=== PATIENT | female | born 1950 | race Caucasian/White ===

== ENCOUNTER 2021-08-22 11:34 | Outpatient (CLI) | payer MEDICARE, SELFPAY ==
[2021-08-22 15:15] LABS: T4 Total, Thyroxin 10.6 ug/dL (4.8-13.9); Thyroid Stim Hormone (TSH) 2.11 uIU/mL (0.358-3.74)
== END 2021-08-22 23:59 | disposition short-term general hospital (02) ==
LOC: MTLAB 11:41
PROVIDERS: PCP Family Medicine; Referring Provider Family Medicine; Visit Provider Family Medicine
DX: E03.9 Hypothyroidism, unspecified (principal)
CPT/HCPCS: 36415; 84436; 84443

== ENCOUNTER 2021-09-20 07:40 | Outpatient (CLI) | payer MEDICARE, SELFPAY ==
--- NOTE | 2021-09-20 07:45 | BI_ITS ---
MAMMOGRAPHY - BILATERAL SCREENING REASON FOR EXAM: Female, 71 years old. Routine annual screening examination. PERTINENT HISTORY: Non-contributory. TECHNIQUE: Digital bilateral breast tremaine (3D mammographic acquisition) in the CC and MLO projections. 2-D mediolateral oblique (MLO) and craniocaudad (CC) views of both breasts were obtained. CAD: Full Field Digital Mammography with Computer Added Detection was performed. COMPARISON: Comparison is made with prior examination dated 09/05/2020. FINDINGS: Breast Composition: There are scattered areas of fibroglandular density. There are no dominant masses or suspicious calcifications. No other significant abnormalities are identified. There has been no significant change since the prior study. BI/SCRN MAMM (CAD)W/TREMAINE BILAT IMPRESSION: Stable bilateral screening mammogram. Yearly follow-up mammogram recommended. (A) ASSESSMENT CATEGORY: BIRADS Category 1: Negative. A letter regarding these results will be sent to the patient by the facility within 30 days. Approximately 10% of breast cancers are not detected by mammography. A normal mammogram should not delay biopsy of a clinically suspicious abnormality. [id number] Electronically Signed: Juan Crowell MD at 8:51 EST ,
== END 2021-09-20 23:59 | disposition short-term general hospital (02) ==
LOC: OPBI 07:41
PROVIDERS: PCP Family Medicine; Referring Provider Family Medicine; Visit Provider Family Medicine
DX: Z12.31 Encounter for screening mammogram for malignant neoplasm of breast (principal)
CPT/HCPCS: 77063; 77067

== ENCOUNTER → 2022-09-10 | Outpatient (CLI) | payer MEDICARE, SELFPAY ==
[2022-09-10 12:51] LABS: T4 Total, Thyroxin 11.1 ug/dL (4.8-13.9); Thyroid Stim Hormone (TSH) 2.42 uIU/mL (0.358-3.74)
== END | disposition home or self-care (01) ==
PROVIDERS: PCP Family Medicine; Visit Provider Family Medicine
DX: E03.9 Hypothyroidism, unspecified (principal)
CPT/HCPCS: 36415; 84436; 84443

== ENCOUNTER → 2023-10-14 | Outpatient (CLI) | payer MEDICARE, SELFPAY ==
--- OUTSIDE RECORDS SUMMARY | 2023-10-14 12:08 | XMS RPT_ITS | CCD ---
Author Name Unknown Address [facility] [place] [id number] [facility]19-[facility]22 Note Date & Type Note Facility 09-19-2022 Note Patient Outreach (IN [facility]) CASIMIRO OSEI ([id number]) 1950 F Date Time Provider Department 09/19/22 ANGE FIGUEROA During your visit today, we recorded the following information about you: Allergies As of Date: 09/19/2022 Noted Allergy Reaction FOSAMAX (ALENDRONATE SODIUM) 04/09/2007 14 - Other: See Comments Comments: Hips ached Date Reviewed: 09/19/2020 Reviewed by: Effie Trevizo Ma - Fully Assessed Visit Diagnosis:Encounter for screening mammogram for breast cancer [Z12.31] Order(s):[facility] SCREENING [[id number]] Order #: [id number] FUTURE Prescriptions as of 09/24/2022 - clobetasol (TEMOVATE) 0.05 % ointment Apply 1 application to affected area twice daily. TO AFFECTED AREA for 4 weeks. Then decrease to once a day for 2 weeks. Then 1-2 times a week for maintenance. - VITAMIN K2 ORAL Take by mouth once daily. - levothyroxine (SYNTHROID) 75 mcg tablet Take one(1) tablet daily. On Saturday take 1 and 1/2 - cholecalciferol (VITAMIN D-3) 2,000 unit tablet Take 2,000 Units by mouth once daily. - VITAMIN E, DL,TOCOPHERYL ACET, (VITAMIN E, DL, ACETATE,) 1,000 unit cap Take 1 tablet by mouth once daily. - Ascorbic Acid-Bioflavonoids (ROSE MARY C WITH BIOFLAVONOIDS) 500-200 mg Tab Take by mouth once daily. - Calcium 600 mg ORAL Cap Take 1 tablet by mouth once daily. - Vit C-Vit G-Vqlbga-Rfydiwhs (OCUVITE LUTEIN) ORAL Cap Take 1 tablet by mouth once daily. - Xbkmqwaamcw-Nyhsmmdwi-Ttt C-Mn (GLUCOSAMINE 1500 COMPLEX) 500-400 mg ORAL Cap Take 1,500 capsules by mouth once daily. - aspirin, enteric coated (ASPIRIN LOW DOSE) 81 mg ORAL EC tablet Take one(1) tablet daily. - multivitamin (MULTIPLE VITAMINS) ORAL Tab Take one(1) tablet daily. Problem List As Of Date 09/19/2022 Noted Resolved Vaginal atrophy [N95.2] 03/06/2013 Lichen sclerosus [L90.0] 12/15/2014 Routine gynecological examination [Z01.419] 12/31/2014 Osteoporosis [M81.0] 12/31/2014 Lumbar verterbral fracture, non-traumatic (HCC)*12/31/2014 Acquired hypothyroidism [E03.9] 07/28/2015 Encounter for screening for cardiovascular diso*07/06/2016 Encounter for screening for diabetes mellitus [*07/06/2016 Medicare annual wellness visit, subsequent [Z00*2019 Medication management [Z79.899] 07/06/2020 Encounter Status:Closed by SELVIN STANTON on 09/24/22 [facility] Clinical Note 10-11-2021 Note Date & Type Note Facility 10-11-2021 Note Patient Outreach (IN [facility]) CASIMIRO OSEI ([id number]) 1950 F Date Time Provider Department 10/11/21 [place], ANGE A INTMMN During your visit today, we recorded the following information about you: Allergies As of Date: 10/11/2021 Noted Allergy Reaction FOSAMAX (ALENDRONATE SODIUM) 04/09/2007 14 - Other: See Comments Comments: Hips ached Date Reviewed: 09/19/2020 Reviewed by: Effie Trevizo Ma - Fully Assessed Visit Diagnosis:Encounter for screening mammogram for breast cancer [Z12.31] Order(s):[facility] SCREENING [[id number]] Order #: [id number] FUTURE Prescriptions as of 10/16/2021 - clobetasol (TEMOVATE) 0.05 % ointment Apply 1 application to affected area twice daily. TO AFFECTED AREA for 4 weeks. Then decrease to once a day for 2 weeks. Then 1-2 times a week for maintenance. - VITAMIN K2 ORAL Take by mouth once daily. - levothyroxine (SYNTHROID) 75 mcg tablet Take one(1) tablet daily. On Saturday take 1 and 1/2 - cholecalciferol (VITAMIN D-3) 2,000 unit tablet Take 2,000 Units by mouth once daily. - VITAMIN E, DL,TOCOPHERYL ACET, (VITAMIN E, DL, ACETATE,) 1,000 unit cap Take 1 tablet by mouth once daily. - Ascorbic Acid-Bioflavonoids (ROSE MARY C WITH BIOFLAVONOIDS) 500-200 mg Tab Take by mouth once daily. - Calcium 600 mg ORAL Cap Take 1 tablet by mouth once daily. - Vit C-Vit R-Qbkqsn-Irungoxv (OCUVITE LUTEIN) ORAL Cap Take 1 tablet by mouth once daily. - Fzwvlsnieaj-Beicbdmlr-Tun C-Mn (GLUCOSAMINE 1500 COMPLEX) 500-400 mg ORAL Cap Take 1,500 capsules by mouth once daily. - aspirin, enteric coated (ASPIRIN LOW DOSE) 81 mg ORAL EC tablet Take one(1) tablet daily. - multivitamin (MULTIPLE VITAMINS) ORAL Tab Take one(1) tablet daily. Problem List As Of Date 10/11/2021 Noted Resolved Vaginal atrophy [N95.2] 03/06/2013 Lichen sclerosus [L90.0] 12/15/2014 Routine gynecological examination [Z01.419] 12/31/2014 Osteoporosis [M81.0] 12/31/2014 Lumbar verterbral fracture, non-traumatic (HCC)*12/31/2014 Acquired hypothyroidism [E03.9] 07/28/2015 Encounter for screening for cardiovascular diso*07/06/2016 Encounter for screening for diabetes mellitus [*07/06/2016 Medicare annual wellness visit, subsequent [Z00*2019 Medication management [Z79.899] 07/06/2020 Encounter Status:Closed by SELVIN STANTON on 10/16/21 [facility] Summary Purpose Family History No Family History Records Found Advance Directives No Advanced Directives Records Found Additional Source Comments INFORMATION SOURCE (unrecogn ized section and content) FOR RECORDS PERTAINING TO PATIENTS WHO ARE OR HAVE BEEN ENROLLED IN A CHEMICAL DEPENDENCY/SUBSTANCEABUSE PROGRAM, SOME INFORMATION MAY BE OMITTED. This clinical summary was aggregated from multiple sources. Caution should be exercised in using it in the provision of clinical care. This summary normalizes information from multiple sources, and as a consequence, information in this document may materially change the coding, format and clinical context of patient data. In addition, data may be omitted in some cases. CLINICAL DECISIONS SHOULD BE BASED ON THE PRIMARY CLINICAL RECORDS. [employer] provides no warranty or guarantee of the accuracy or completeness of information in this document.
[2023-10-14 12:38] LABS: T4 Total, Thyroxin 10.1 ug/dL (4.8-13.9); Thyroid Stim Hormone (TSH) 2.05 uIU/mL (0.358-3.74)
== END | disposition home or self-care (01) ==
LOC: MFPLAB 10:37
PROVIDERS: PCP Family Medicine; Visit Provider Family Medicine
DX: E03.9 Hypothyroidism, unspecified (principal)
CPT/HCPCS: 36415; 84436; 84443

== ENCOUNTER → 2023-11-05 | Outpatient (CLI) | payer MEDICARE, SELFPAY ==
--- NOTE | 2023-11-05 12:24 | BI_ITS ---
MAMMOGRAPHY - BILATERAL SCREENING REASON FOR EXAM: Female, 73 years old. Routine annual screening examination. PERTINENT HISTORY: Non-contributory. TECHNIQUE: Digital bilateral breast tremaine (3D mammographic acquisition) in the CC and MLO projections. 2-D mediolateral oblique (MLO) and craniocaudad (CC) views of both breasts were obtained. CAD: Full Field Digital Mammography with Computer Added Detection was performed. COMPARISON: Comparison is made with prior study September 20, 2021. FINDINGS: Breast Composition: There are scattered areas of fibroglandular density. There are no dominant masses or suspicious calcifications. No other significant abnormalities are identified. There has been no significant change since the prior study. BI/SCRN MAMM (CAD)W/TREMAINE BILAT IMPRESSION: Stable bilateral screening mammogram. Yearly follow-up mammogram recommended. (A) ASSESSMENT CATEGORY: BIRADS Category 1: Negative. A letter regarding these results will be sent to the patient by the facility within 30 days. Approximately 10% of breast cancers are not detected by mammography. A normal mammogram should not delay biopsy of a clinically suspicious abnormality. [id number] Electronically Signed: Juan Crowell MD at 14:35 EDT ,
== END | disposition home or self-care (01) ==
LOC: OPBI 12:22
PROVIDERS: PCP Family Medicine; Referring Provider Family Medicine; Visit Provider Family Medicine
DX: Z12.31 Encounter for screening mammogram for malignant neoplasm of breast (principal)
CPT/HCPCS: 77063; 77067

== ENCOUNTER → 2024-12-03 | Outpatient (CLI) | payer MEDICARE, SELFPAY ==
[2024-12-03 16:07] LABS: T3 Total - Triiodothyronine 0.84 ng/mL (0.80-2.00)
== END | disposition home or self-care (01) ==
PROVIDERS: PCP Family Medicine; Referring Provider Family Medicine; Visit Provider Family Medicine
DX: E03.9 Hypothyroidism, unspecified (principal)
CPT/HCPCS: 36415; 84439; 84443; 84480

== ENCOUNTER 2024-12-09 09:56 | Outpatient (CLI) | payer MEDICARE, SELFPAY ==
[2024-12-09 15:54] LABS: Cholesterol 223 mg/dL (<=200); High Density Lipoprotein 56 mg/dL; Low Density Lipoprotein Calc. 146 mg/dL; Triglycerides 106 mg/dL; Very Low Density Lipoprotein 21 mg/dL (5-40); cholesterol:hdl ratio screen 3.96
== END 2024-12-09 23:59 | disposition home or self-care (01) ==
LOC: MFPLAB 09:58
PROVIDERS: PCP Family Medicine
DX: Z13.220 Encounter for screening for lipoid disorders (principal)
CPT/HCPCS: 36415; 80061

== ENCOUNTER → 2024-12-22 | Outpatient (CLI) | payer MEDICARE, SELFPAY ==
--- NOTE | 2024-12-22 14:13 | BI_ITS ---
EXAM: SCRN MAMM (CAD)W/TREMAINE BILAT DATE: 12/22/2024 CLINICAL HISTORY: F, Age 74 y/o , SCREENING BREAST CANCER RISK ASSESSMENT: Not reported TECHNIQUE: Bilateral screening digital breast tomosynthesis with 2D and 3D images. Computer aided detection. COMPARISON: Prior exam(s) were compared FINDINGS: TISSUE DENSITY: The breast tissue is heterogenously dense, which may obscure small masses. Bilateral Breast Mammographic Findings: No suspicious masses, calcifications or other abnormalities are identified. BI/SCRN MAMM (CAD)W/TREMAINE BILAT IMPRESSION: OVERALL FINAL ASSESSMENT: BIRADS 1 NEGATIVE RECOMMENDATION: Routine annual follow-up in 1 Year A letter with findings and recommendations will be mailed to the patient. Reading Location: [id number]
--- NOTE | 2024-12-22 14:26 | BD_ITS ---
PROCEDURE: DEXA BONE DENSITY STUDY 12/22/2024 REASON FOR EXAM: F, age 74 y/o . Postmenopausal. TECHNIQUE: DEXA scan of sites with data reported below. Scanner utilized: [employer] REFERENCE LINKS: ISCD Adult Positions COMPARISON: None FINDINGS: BMD and T-SCORES Lumbar spine: 0.663 g/cm2, T-score -3.5 Levels: L1 through L4 Left femoral neck: 0.576 g/cm2, T-score -2.5 Left total hip: 0.643 g/cm2, T-score -2.5 Right femoral neck: 0.588 g/cm2, T-score -2.4 Right total hip: 0.677 g/cm2, T-score -2.2 The World Health Organization has defined the following categories based on bone density: Normal bone density: T-score equal to or greater than -1.0 Osteopenia: T-score between -1.0 and -2.5 Osteoporosis: T-score equal to or less than -2.5 FRAX (or Comparable) Fracture Risk Assessment: 10 Year Probability of Fracture: Major Osteoporotic Fracture: 15% Hip Fracture: 4.1% (Note: FRAX is not to be reported in setting of normal range bone density, osteoporosis on DEXA, known history of osteoporosis, prior osteoporotic hip or vertebral fracture, or for any patient undergoing pharmacological treatment for bone loss.) The National Osteoporosis Foundation (NOF) recommends pharmacological treatment for patients with a FRAX 10-year risk of 3% or higher for a hip fracture, or 20% or higher for a major osteoporotic fracture, to prevent osteoporosis and reduce fracture risk. The patient does meet the pharmacological treatment recommendations for prevention of osteoporosis. BD/Dexa Bone Density Study IMPRESSION: OSTEOPOROSIS. Recommend follow-up as clinically warranted. Reading Location: [id number]
== END | disposition home or self-care (01) ==
LOC: OPBD 14:12
PROVIDERS: PCP Family Medicine
DX: Z12.31 Encounter for screening mammogram for malignant neoplasm of breast (principal); Z78.0 Asymptomatic menopausal state; Z13.820 Encounter for screening for osteoporosis
CPT/HCPCS: 77063; 77067; 77080

== ENCOUNTER → 2025-05-26 | Outpatient (CLI) | payer MEDICARE, SELFPAY ==
[2025-05-26 13:14] LABS: Cholesterol 247 mg/dL (<=200); Low Density Lipoprotein Calc. 156 mg/dL; Triglycerides 160 mg/dL; Very Low Density Lipoprotein 32 mg/dL (5-40); cholesterol:hdl ratio screen 4.19
== END | disposition home or self-care (01) ==
LOC: MTLAB 10:33
PROVIDERS: PCP Nurse Practitioner Women's Health
DX: Z13.220 Encounter for screening for lipoid disorders (principal)
CPT/HCPCS: 36415; 80061